=== PATIENT | male | born 1995 | race African-American/Black ===

== ENCOUNTER 2016-08-25 03:33 | Emergency (ER) | payer SELFPAY ==
[~2016-08-25] VITALS: Ht 175.3 cm; Wt 72.6 kg
[2016-08-25 03:59] LABS: BASO % 1 % (0-3); EOS % 0 % (0-3); HEMATOCRIT 49.5 % (39.0-53.0); HEMOGLOBIN 16.5 g/dL (13.0-17.5); LYMPH # 1.1 x10^3/uL (1.0-4.8); LYMPH % 15 % (24-48); MEAN CORPUSCULAR HEMOGLOBIN 30 pg (25-35); MEAN CORPUSCULAR HGB CONC 33 g/dL (31-37); MEAN CORPUSCULAR VOLUME 89 fL (79-100); MONO % 6 % (0-9); NEUT % 78 % (31-73); PLATELET COUNT 183 x10^3/uL (140-400); RED BLOOD COUNT 5.55 x10^6/uL (4.30-5.70); RED CELL DISTRIBUTION WIDTH 13.9 % (11.5-14.5)
[2016-08-25 04:04] LABS: CALCIUM 10.1 mg/dL (8.5-10.1); CREATININE 1.5 mg/dL (0.7-1.3); GFR 70.8; POTASSIUM 3.8 mmol/L (3.5-5.1)
[2016-08-25 04:10] LABS: ALBUMIN 4.9 g/dL (3.4-5.0); DIRECT BILIRUBIN 0.2 mg/dL (0.0-0.2); ETHANOL < 10 mg/dL (0-10); TOTAL BILIRUBIN 1.1 mg/dL (0.2-1.0); TOTAL PROTEIN 8.7 g/dL (6.4-8.2)
--- NOTE | 2016-08-25 04:30 | PHYS DOC ---
Past Medical History Past Medical History: No Pertinent History Past Surgical History: No Surgical History Alcohol Use: None Drug Use: Other Adult General Chief Complaint Chief Complaint: SUBSTANCE ABUSE HPI HPI 20-year-old male presenting to the emergency department reportedly confused brought in by EMS after knocking on multiple homes. Upon arrival here the patient is oriented to person place and time. He denies any pain. He denies taking any substances. Onset today. Location generalized. Duration intermittent. No alleviating factors present. Review of systems is negative for chest pain shortness of breath nausea vomiting fevers chills. He denies any pain. All other review of systems is negative unless otherwise noted in history of present illness. Review of Systems Review of Systems SEE ABOVE. Allergies Allergies Allergies Coded Allergies Type Severity Reaction Last Updated Verified No Known Drug Allergies 11/03/13 No Physical Exam Physical Exam Constitutional: Well developed, well nourished, no acute distress, non-toxic appearance. HENT: Normocephalic, atraumatic, bilateral external ears normal, oropharynx moist, no oral exudates, nose normal. [] Eyes: PERRLA, EOMI, conjunctiva normal, no discharge. [] Neck: Normal range of motion, no tenderness, supple, no stridor. Cardiovascular:Heart rate regular rhythm, no murmur [] Lungs & Thorax: Bilateral breath sounds clear to auscultation Abdomen: Bowel sounds normal, soft, no tenderness, no masses, no pulsatile masses. [] Skin: Warm, dry, no erythema, no rash. Back: No tenderness, no CVA tenderness. [] Extremities: No tenderness, no cyanosis, no clubbing, ROM intact, no edema. Neurologic: Mental status: Awake oriented and alert x3 Cranial nerves: Extraocular movements intact, eyebrows doroteo bilaterally smile symmetric, uvula elevation, shoulder shrug intact, tongue protrusion normal Sensation: equal and normal in all extremities Strength: 5/5 in upper and lower extremities bilaterally Psychologic: Affect normal, judgement normal, mood normal. [] Current Patient Data Vital Signs Vital Signs Date Time Temp Pulse Resp B/P Pulse Ox O2 Delivery O2 Flow Rate FiO2 08/25/16 04:18 62 18 164/100 96 Room Air 08/25/16 03:45 97.5 97.5 Lab Values Laboratory Tests Test 08/25/16 03:46 08/25/16 04:50 White Blood Count 7.0x10^3/uL (4.0-11.0) Red Blood Count 5.55x10^6/uL (4.30-5.70) Hemoglobin 16.5g/dL (13.0-17.5) Hematocrit 49.5% (39.0-53.0) Mean Corpuscular Volume 89fL (79-100) Mean Corpuscular Hemoglobin 30pg (25-35) Mean Corpuscular Hemoglobin Concent 33g/dL (31-37) Red Cell Distribution Width 13.9% (11.5-14.5) Platelet Count 183x10^3/uL (140-400) Neutrophils (%) (Auto) 78% (31-73) H Lymphocytes (%) (Auto) 15% (24-48) L Monocytes (%) (Auto) 6% (0-9) Eosinophils (%) (Auto) 0% (0-3) Basophils (%) (Auto) 1% (0-3) Neutrophils # (Auto) 5.4x10^3uL (1.8-7.7) Lymphocytes # (Auto) 1.1x10^3/uL (1.0-4.8) Monocytes # (Auto) 0.4x10^3/uL (0.0-1.1) Eosinophils # (Auto) 0.0x10^3/uL (0.0-0.7) Basophils # (Auto) 0.0x10^3/uL (0.0-0.2) Sodium Level 143mmol/L (136-145) Potassium Level 3.8mmol/L (3.5-5.1) Chloride Level 101mmol/L (98-107) Carbon Dioxide Level 27mmol/L (21-32) Anion Gap 15 (6-14) H Blood Urea Nitrogen 15mg/dL (8-26) Creatinine 1.5mg/dL (0.7-1.3) H Estimated GFR (Cockcroft-Gault) 70.8 Glucose Level 116mg/dL (70-99) H Serum Osmolality 294mOsm/Kg (279-304) Calcium Level 10.1mg/dL (8.5-10.1) Total Bilirubin 1.1mg/dL (0.2-1.0) H Direct Bilirubin 0.2mg/dL (0.0-0.2) Aspartate Amino Transferase (AST) 70U/L (15-37) H Alanine Aminotransferase (ALT) 27U/L (16-63) Alkaline Phosphatase 70U/L (46-116) Total Protein 8.7g/dL (6.4-8.2) H Albumin 4.9g/dL (3.4-5.0) Lipase 70U/L (73-393) L Salicylates Level 4.0mg/dL (2.8-20.0) Salicylate Last Dose Date Unk Salicylate Last Dose Time Unk Acetaminophen Level < 2mcg/ml (10-30) L Acetaminophen Last Dose Date Unk Acetaminophen Last Dose Time Unk Ethyl Alcohol Level < 10mg/dL (0-10) Urine Collection Type Unknown Urine Color Yellow Urine Clarity Clear Urine pH 5.5 Urine Specific [place] <=1.005 Urine Protein Negativemg/dL (NEG-TRACE) Urine Glucose (UA) Negativemg/dL (NEG) Urine Ketones (Stick) Tracemg/dL (NEG) Urine Blood Small (NEG) Urine Nitrite Negative (NEG) Urine Bilirubin Negative (NEG) Urine Urobilinogen Dipstick 0.2mg/dL (0.2 mg/dL) Urine Leukocyte Esterase Trace (NEG) Urine RBC Occ/HPF (0-2) Urine WBC 0/HPF (0-4) Urine Squamous Epithelial Cells None/LPF Urine Bacteria 0/HPF (0-FEW) Urine Hyaline Casts Occasional/HPF Urine Opiates Screen Neg (NEG) Urine Methadone Screen Neg (NEG) Urine Barbiturates Neg (NEG) Urine Phencyclidine Screen Pos (NEG) Urine Amphetamine/Methamphetamine Neg (NEG) Urine Benzodiazepines Screen Neg (NEG) Urine Cocaine Screen Neg (NEG) Urine Cannabinoids Screen Pos (NEG) Urine Ethyl Alcohol Neg (NEG) Laboratory Tests 08/25/16 03:46 Laboratory Tests 08/25/16 03:46 EKG EKG [] Radiology/Procedures Radiology/Procedures [] Course & Med Decision Making Course & Med Decision Making Pertinent Labs and Imaging studies reviewed. (See chart for details) [] 20-year-old male presenting to the emergency department today reportedly confused. Upon arrival here the patient is not confused. He denies drinking alcohol. Blood work obtained which was unremarkable including a negative alcohol. It is possible that he is using some other substance however the patient is able to speak in clear sentences and is able to walk in our emergency department without assistance. Pertinent physical exam shows atraumatic head. No evidence of laceration abrasion or ecchymosis to the head or neck. He has a friend here who is willing to drive him home and care for him. The patient was subsequently discharged home to follow up with PCP over the next 2-3 days. Dragon Disclaimer Dragon Disclaimer This electronic medical record was generated, in whole or in part, using a voice recognition dictation system. Departure Departure Impression: Primary Impression: Substance abuse Disposition: HOME, SELF-CARE Condition: STABLE Referrals: NO PCP (PCP) EILEEN FOREMAN MD Patient Instructions: Substance Abuse-Brief Additional Instructions: Thank you for allowing us to participate in your care today. Followup with your primary care physician in 3 days if your symptoms do not improve. If you do not have a primary care provider you can ask for a list of our primary care providers. Return to the emergency department you have any new or concerning findings. This should be evaluated by the primary care physician and any necessary consulting services for continued management within a few days after discharge. Return to emergency room if you have any new or concerning symptoms including but not limited to fever, chills, nausea, vomiting, intractable pain, any new rashes, chest pain, shortness of air, uncontrolled bleeding, difficulty breathing, and/or vision loss. LEIDA MOSLEY MD Aug 25, 2016 04:30
[2016-08-25 04:59] LABS: BILIRUBIN,URINE NEGATIVE (NEG); GLUCOSE,URINE NEGATIVE (NEG); NITRITE,URINE NEGATIVE (NEG); PH,URINE 5.5; PROTEIN,URINE NEGATIVE (NEG-TRACE); UROBILINOGEN,URINE 0.2 mg/dL (0.2 mg/dL)
[2016-08-25 05:05] LABS: BARBITURATES NEG (NEG); BENZODIAZEPINES NEG (NEG); CANNABINOIDS POS (NEG); COCAINE NEG (NEG); METHADONE NEG (NEG); OPIATES NEG (NEG); PHENCYCLIDINE POS (NEG)
[2016-08-25 05:06] LABS: ETHANOL, URINE NEG (NEG)
[2016-08-25 05:15] LABS: BACTERIA,URINE 0 /HPF (0-FEW); RBC,URINE OCC /HPF (0-2); WBC,URINE 0 /HPF (0-4)
[2016-08-25 06:00] VITALS: BP 154/89
== END 2016-08-25 06:00 | disposition home or self-care (01) ==
LOC: ER 03:33
DX: F19.10 Other psychoactive substance abuse, uncomplicated (principal)
CPT/HCPCS: 36415; 80048; 80076; 80305; 80320; 81001; 83690; 83930; 85027; 87086; 99284; G6038; G0480; G0481; 80196

== ENCOUNTER 2020-03-18 13:10 | Emergency (ER) | payer SELFPAY ==
[~2020-03-18] VITALS: Ht 182.9 cm; Wt 81.8 kg
[2020-03-18 14:30] VITALS: BP 134/80
[2020-03-18] MEDS ORDERED: IBUPROFEN 200 MG TABLET. PO ONE (15:30)
--- NOTE | 2020-03-18 16:01 | PHYS DOC ---
Past Medical History Past Medical History: No Pertinent History Past Surgical History: No Surgical History Smoking Status: Never Smoker Alcohol Use: None Drug Use: Other General Adult EDM: Chief Complaint: THUMB HPI: HPI: Patient is a 24 year old male who presents with states a box with metal and it fell on his left thumb and now he has pain and swelling to the left thumb metacarpophalangeal. Swelling is 2+. There is tenderness to this area. Patient states he cannot bend at that joint due to pain. There is no laxity to any of the joints. No bruising or deformity. Patient states he has not taken anything to help with pain. He rates his pain 10 out of 10. He states it is aching and sharp. Worse with movement. Patient denies any other past medical history. Denies numbness or tingling, coolness to the extremity, skin color change, focal weakness. Review of Systems: Review of Systems: Constitutional: Denies fever or chills. [] Eyes: Denies change in visual acuity. [] HENT: Denies nasal congestion or sore throat. [] Respiratory: Denies cough or shortness of breath. [] Cardiovascular: Denies chest pain. Left thumb joint 2+ edema. [] GI: Denies abdominal pain, nausea, vomiting, bloody stools or diarrhea. [] : Denies dysuria. [] Musculoskeletal: Denies back pain. + Left thumb joint pain. [] Integument: Denies rash. [] Neurologic: Denies headache, focal weakness or sensory changes. [] Endocrine: Denies polyuria or polydipsia. [] Lymphatic: Denies swollen glands. [] Psychiatric: Denies depression or anxiety. [] Heart Score: Risk Factors: Risk Factors: DM, Current or recent (<one month) smoker, HTN, HLP, family history of CAD, obesity. Risk Scores: Score 0 - 3: 2.5% MACE over next 6 weeks - Discharge Home Score 4 - 6: 20.3% MACE over next 6 weeks - Admit for Clinical Observation Score 7 - 10: 72.7% MACE over next 6 weeks - Early Invasive Strategies Current Medications: Current Medications Medications (Trade) Dose Ordered Sig/Dara Start Time Stop Time Status Last Admin Dose Admin Ibuprofen (Motrin) 600 mg 1X ONCE 03/18/20 15:30 03/18/20 15:31 DC Allergies: Allergies: Allergies Coded Allergies Type Severity Reaction Last Updated Verified No Known Drug Allergies 11/03/13 No Physical Exam: PE: Constitutional: Well developed, well nourished, no acute distress, non-toxic appearance. [] HENT: Normocephalic, atraumatic, bilateral external ears normal, oropharynx moist, no oral exudates, nose normal. [] Eyes: PERRLA, EOMI, conjunctiva normal, no discharge. [] Neck: Normal range of motion, no tenderness, supple, no stridor. [] Cardiovascular:Heart rate regular rhythm, no murmur [] Lungs & Thorax: Bilateral breath sounds clear to auscultation [] Abdomen: Bowel sounds normal, soft, no tenderness, no masses, no pulsatile masses. [] Skin: Warm, dry, no erythema, no rash. [] Back: No tenderness, no CVA tenderness. [] Extremities: Left thumb joint tenderness, no cyanosis, no clubbing, left thumb joint ROM not intact due to pain and swelling, left thumb joint 2+ edema. [] Neurologic: Alert and oriented X 3, normal motor function, normal sensory function, no focal deficits noted. [] Psychologic: Affect normal, judgement normal, mood normal. [] Current Patient Data: Vital Signs: Vital Signs Date Time Temp Pulse Resp B/P (MAP) Pulse Ox O2 Delivery O2 Flow Rate FiO2 03/18/20 14:30 98.1 58 20 134/80 (98) 99 Room Air 98.1 EKG: EKG: [] Radiology/Procedures: Radiology/Procedures: [] Impression: [facility] [address] [place], [place] [id number] IMAGING REPORT Signed PATIENT: CHEYENNE RUBALCAVA ACCOUNT: [id number] : 1995 LOCATION: ER AGE: 24 SEX: M EXAM STATUS: REG ER ORD. PHYSICIAN: MARITZA ENRIQUEZ APRN REASON: PAIN AT THUMB PROCEDURE: HAND LEFT 3V EXAM: HAND LEFT 3V 03/18/2020 3:18 PM CLINICAL INDICATION:Pain at thumb COMPARISON:None TECHNIQUE:3 views of the left hand FINDINGS:No acute fracture. Alignment is normal. Joint spaces are maintained. No focal soft tissue abnormality. IMPRESSION:No acute osseous abnormality. Electronically signed by: Sade Ocasio MD (03/18/2020 3:59 PM) [id number] DICTATED and SIGNED BY: SADE OCASIO MD DATE: 03/18/20 1559 Course & Med Decision Making: Course & Med Decision Making Pertinent Labs and Imaging studies reviewed. (See chart for details) See HPI. Patient was given ibuprofen the emergency room. Radial pulses strong and present. Skin [place] warm and dry. Cap refill less than 2 seconds. X-ray shows no acute findings. Patient will follow up with orthopedics. Upon going into speak with the patient he had eloped. Patient did not get any prescriptions or his discharge paperwork for follow-up care. He did not get his x-ray results as he left before the x-ray was read. Patient was not placed in a splint because he eloped. [] Dragon Disclaimer: Dragon Disclaimer: This electronic medical record was generated, in whole or in part, using a voice recognition dictation system. Departure Departure Impression: Primary Impression: Pain of left thumb Disposition: 07 AMA/ELOPED/LWBS Condition: STABLE Referrals: NO PCP (PCP) HAYLEE BRODERICK II, MD Additional Instructions: MARITZA ENRIQUEZ APRN Mar 18, 2020 16:01
[2020-03-18] MEDS ORDERED: IBUP-1007 PO (16:08)
== END 2020-03-18 16:10 | disposition home or self-care (01) ==
LOC: ER 13:10
DX: M79.645 Pain in left finger(s) (principal); R22.32 Localized swelling, mass and lump, left upper limb
CPT/HCPCS: 73130; 99283

== ENCOUNTER 2021-07-31 09:39 | Observation (INO) | payer SELFPAY ==
[~2021-07-31] VITALS: Ht 180.3 cm; Wt 72.7 kg
[~2021-07-31 09:39] MED LIST: IBUP-1007 PO
[2021-07-31] MEDS ORDERED: IV NORMAL SALINE 1000ML BAG 1,000 ML IV ONE (10:00)
--- NOTE | 2021-07-31 10:14 | PHYS DOC ---
Past Medical History Past Medical History: No Pertinent History Past Surgical History: No Surgical History Smoking Status: Never Smoker Alcohol Use: None Drug Use: Other Adult General Chief Complaint Chief Complaint: ALTERED MENTAL STATUS HPI HPI The patient is a 25-year-old male without known medical history. Prior documentation references an admission in 2016 for PCP intoxication with altered mental status. Mr. Tarango presents for evaluation of altered mental status. Concerned terrenceby called EMS because he was sitting in the parking lot at [facility] not responding appropriately. On EMS arrival, patient was alert and responsive but confused, oriented to name only. Blood glucose and vital signs were appropriate during transport. On arrival to the emergency department, patient is alert to self and can also tell me the year but gets the month wrong. He states he does not remember what happened last night but then reverses himself and states he remembers being at work a [employer] overnight (he is dressed in work clothing, supporting this assertion). He denies any use of drugs or alcohol. He moves all extremities equally and follows commands appropriately but does not provide much history aside from noting that he does not hurt anywhere. He is in no acute distress. Review of Systems Review of Systems Review of systems not obtainable secondary to altered mental status. Current Medications Current Medications Current Medications Medications (Trade) Dose Ordered Sig/Dara Start Time Stop Time Status Last Admin Dose Admin Acetaminophen (Tylenol) 650 mg PRN Q4HRS PRN 07/31/21 12:00 Dextrose (Dextrose 50%-Water Syringe) 12.5 gm PRN Q15MIN PRN 07/31/21 12:00 Diphenhydramine HCl (Benadryl) 25 mg PRN QHS PRN 07/31/21 12:00 Docusate Sodium (Colace) 100 mg PRN DAILY PRN 07/31/21 12:00 Lorazepam (Ativan Inj) 0.25 mg PRN Q4HRS PRN 07/31/21 12:00 Lorazepam (Ativan) 0.5 mg PRN Q6HRS PRN 07/31/21 12:00 Ondansetron HCl (Zofran) 4 mg PRN Q6HRS PRN 07/31/21 12:00 Pantoprazole Sodium (Protonix) 40 mg DAILYAC 07/31/21 13:00 07/31/21 13:00 40 MG Prochlorperazine Edisylate (Compazine) 10 mg PRN Q6HRS PRN 07/31/21 12:00 Sennosides (Senna) 17.2 mg PRN BID PRN 07/31/21 12:00 Sodium Chloride 1,000 ml @ 100 mls/hr Q10H 07/31/21 13:00 07/31/21 23:06 100 MLS/HR Zolpidem Tartrate (Ambien) 2.5 mg PRN QHS PRN 07/31/21 12:00 Allergies Allergies Allergies Coded Allergies Type Severity Reaction Last Updated Verified No Known Drug Allergies 11/03/13 No Physical Exam Physical Exam 25-year-old male appearing nontoxic and in no acute distress. Head is normocephalic and atraumatic. Neck is supple and nontender. No neck stiffness/rigidity/meningismus seen and patient ranges neck fully in all dimensions without discomfort or distress. Kernig's and Brudzinski's are negative. Oropharynx is moist. Lungs are clear to auscultation at all stations. There is a normal S1 and S2 without rubs or gallops and capillary r efill is appropriate, less than 2 seconds globally. Abdomen is soft, nontender nondistended. Skin is warm and dry without cyanosis, clubbing or edema. Psychiatrically, the patient demonstrates appropriate mood and affect and is alert. Neurologically, patient moves all extremities equally, is alert and oriented to self only and no lateralizing deficits are seen. Current Patient Data Vital Signs Vital Signs Date Time Temp Pulse Resp B/P (MAP) Pulse Ox O2 Delivery O2 Flow Rate FiO2 07/31/21 12:39 80 16 130/60 (83) 99 07/31/21 09:50 98.1 Room Air 98.1 Lab Values Laboratory Tests Test 07/31/21 10:00 07/31/21 10:10 Urine Collection Type Unknown Urine Color Yellow Urine Clarity Clear Urine pH 5.5 (<5.0-8.0) Urine Specific [place] 1.025 (1.000-1.030) Urine Protein Negative mg/dL (NEG-TRACE) Urine Glucose (UA) Negative mg/dL (NEG) Urine Ketones (Stick) Negative mg/dL (NEG) Urine Blood Trace (NEG) Urine Nitrite Negative (NEG) Urine Bilirubin Small (NEG) Urine Urobilinogen Dipstick 1.0 mg/dL (0.2 mg/dL) Urine Leukocyte Esterase Negative (NEG) Urine RBC 0 /HPF (0-2) Urine WBC 1-4 /HPF (0-4) Urine Squamous Epithelial Cells Few /LPF Urine Bacteria 0 /HPF (0-FEW) Urine Mucus Slight /LPF Urine Opiates Screen Neg (NEG) Urine Methadone Screen Neg (NEG) Urine Barbiturates Neg (NEG) Urine Phencyclidine Screen Pos (NEG) Urine Amphetamine/Methamphetamine Neg (NEG) Urine Benzodiazepines Screen Neg (NEG) Urine Cocaine Screen Neg (NEG) Urine Cannabinoids Screen Pos (NEG) Urine Ethyl Alcohol Neg (NEG) White Blood Count 6.4 x10^3/uL (4.0-11.0) Red Blood Count 4.75 x10^6/uL (4.30-5.70) Hemoglobin 14.0 g/dL (13.0-17.5) Hematocrit 42.4 % (39.0-53.0) Mean Corpuscular Volume 89 fL (79-100) Mean Corpuscular Hemoglobin 30 pg (25-35) Mean Corpuscular Hemoglobin Concent 33 g/dL (31-37) Red Cell Distribution Width 13.4 % (11.5-14.5) Platelet Count 171 x10^3/uL (140-400) Neutrophils (%) (Auto) 78 % (31-73) H Lymphocytes (%) (Auto) 14 % (24-48) L Monocytes (%) (Auto) 7 % (0-9) Eosinophils (%) (Auto) 0 % (0-3) Basophils (%) (Auto) 1 % (0-3) Neutrophils # (Auto) 5.0 x10^3/uL (1.8-7.7) Lymphocytes # (Auto) 0.9 x10^3/uL (1.0-4.8) L Monocytes # (Auto) 0.4 x10^3/uL (0.0-1.1) Eosinophils # (Auto) 0.0 x10^3/uL (0.0-0.7) Basophils # (Auto) 0.0 x10^3/uL (0.0-0.2) Sodium Level 148 mmol/L (136-145) H Potassium Level 4.2 mmol/L (3.5-5.1) Chloride Level 108 mmol/L (98-107) H Carbon Dioxide Level 28 mmol/L (21-32) Anion Gap 12 (6-14) Blood Urea Nitrogen 29 mg/dL (8-26) H Creatinine 1.8 mg/dL (0.7-1.3) H Estimated GFR (Cockcroft-Gault) 55.0 BUN/Creatinine Ratio 16 (6-20) Glucose Level 114 mg/dL (70-99) H Calcium Level 9.0 mg/dL (8.5-10.1) Total Bilirubin 1.1 mg/dL (0.2-1.0) H Aspartate Amino Transferase (AST) 101 U/L (15-37) H Alanine Aminotransferase (ALT) 44 U/L (16-63) Alkaline Phosphatase 46 U/L (46-116) Troponin I High Sensitivity 19 ng/L (4-75) Total Protein 6.6 g/dL (6.4-8.2) Albumin 3.9 g/dL (3.4-5.0) Albumin/Globulin Ratio 1.4 (1.0-1.7) Salicylates Level 4.6 mg/dL (2.8-20.0) Salicylate Last Dose Date Unknown Salicylate Last Dose Time Unknown Acetaminophen Level < 2 mcg/ml (10-30) L Acetaminophen Last Dose Date Unknown Acetaminophen Last Dose Time Unknown Ethyl Alcohol Level < 10 mg/dL (0-10) Laboratory Tests 07/31/21 10:10 Laboratory Tests 07/31/21 10:10 EKG EKG Sinus rhythm, rate 104, no acute ST elevation or depression, NE 124, QRS 102, QTc 499, EP interpretation. Nonischemic tracing, intervals appropriate. Radiology/Procedures Radiology/Procedures CT brain without contrast. HISTORY: Altered mental status CT scan of the brain was done without contrast. Sinuses are clear. A skull fracture is not evident. There is no mass effect or shift of the midline. Ventricles are normal in size. An acute CVA is not identified. There is no intracranial hemorrhage or subdural hematoma. IMPRESSION: 1. No intracranial hemorrhage or acute finding noted. PQRS Compliance Statement: One or more of the following individualized dose reduction techniques were utilized for this examination: 1. Automated exposure control 2. Adjustment of the mA and/or kV according to patient size 3. Use of iterative reconstruction technique Electronically signed by: Melvin Gates MD (07/31/2021 11:17 AM) [id number] DICTATED and SIGNED BY: MELVIN GATES MD DATE: 07/31/21 [id number] XR CHEST 1V History: Reason: AMS / Spl. Instructions: / History: Comparison: December 02, 2015 Findings: No consolidation or pleural effusion. Normal heart size. No pneumothorax. Impression: 1. No acute cardiopulmonary process. Electronically signed by: Tigre Stafford DO (07/31/2021 10:33 AM) [id number] DICTATED and SIGNED BY: TIGRE STAFFORD DO DATE: 07/31/21 [id number] Course & Med Decision Making Course & Med Decision Making Plan for large work-up as noted, IV fluids and probable admission. Update: Work-up as above is remarkable for polysubstance positivity on UDS (phencyclidine and marijuana), acute renal insufficiency and hypernatremia. In context, substance abuse is the most likely etiology for patient's presenting symptoms. Patient is resting comfortably in no acute distress on serial reas sessments. He is still somewhat altered, though more conversational than on arrival. Will bring in for further care on an observation basis. Dr. Jones graciously accepts. Dragon Disclaimer Dragon Disclaimer This electronic medical record was generated, in whole or in part, using a voice recognition dictation system. Departure Departure Impression: Primary Impression: Toxic encephalopathy Additional Impressions: Acute renal insufficiency Hypernatremia Dehydration Referrals: NO PCP (PCP) Problem Qualifiers JAMIE FRANCIS MD Jul 31, 2021 10:13
[2021-07-31 10:36] LABS: CREATININE 1.8 mg/dL (0.7-1.3); POTASSIUM 4.2 mmol/L (3.5-5.1)
--- NOTE | 2021-07-31 10:36 | RAD ---
XR CHEST 1V History: Reason: AMS / Spl. Instructions: / History: Comparison: December 02, 2015 Findings: No consolidation or pleural effusion. Normal heart size. No pneumothorax. Impression: 1. No acute cardiopulmonary process. Electronically signed by: Tigre Stafford DO (07/31/2021 10:33 AM) [id number]
[2021-07-31 10:41] LABS: ALBUMIN 3.9 g/dL (3.4-5.0); ALBUMIN/GLOBULIN RATIO 1.4 (1.0-1.7); TOTAL BILIRUBIN 1.1 mg/dL (0.2-1.0); TOTAL PROTEIN 6.6 g/dL (6.4-8.2)
[2021-07-31 10:45] LABS: ACETAMIN < 2 mcg/ml (10-30); ETHANOL < 10 mg/dL (0-10); SALIC 4.6 mg/dL (2.8-20.0)
[2021-07-31 10:47] LABS: BASO % 1 % (0-3); EOS % 0 % (0-3); HEMATOCRIT 42.4 % (39.0-53.0); LYMPH # 0.9 x10^3/uL (1.0-4.8); LYMPH % 14 % (24-48); MEAN CORPUSCULAR HEMOGLOBIN 30 pg (25-35); MEAN CORPUSCULAR HGB CONC 33 g/dL (31-37); MEAN CORPUSCULAR VOLUME 89 fL (79-100); MONO # 0.4 x10^3/uL (0.0-1.1); MONO % 7 % (0-9); NEUT % 78 % (31-73); PLATELET COUNT 171 x10^3/uL (140-400); RED BLOOD COUNT 4.75 x10^6/uL (4.30-5.70); RED CELL DISTRIBUTION WIDTH 13.4 % (11.5-14.5); WHITE BLOOD COUNT 6.4 x10^3/uL (4.0-11.0)
[2021-07-31 11:09] LABS: BARBITURATES NEG (NEG); BENZODIAZEPINES NEG (NEG); CANNABINOIDS POS (NEG); COCAINE NEG (NEG); METHADONE NEG (NEG); OPIATES NEG (NEG); PHENCYCLIDINE POS (NEG)
[2021-07-31 11:10] LABS: AMPHETAMINE/METHAMPHETAMINE NEG (NEG)
[2021-07-31 11:13] LABS: BILIRUBIN,URINE SMALL (NEG); CLARITY,URINE CLEAR; COLOR,URINE YELLOW; NITRITE,URINE NEGATIVE (NEG); PH,URINE 5.5 (<5.0-8.0); PROTEIN,URINE NEGATIVE (NEG-TRACE)
[2021-07-31 11:14] LABS: RBC,URINE 0 /HPF (0-2)
[2021-07-31 11:15] LABS: BACTERIA,URINE 0 /HPF (0-FEW)
--- NOTE | 2021-07-31 11:20 | RAD ---
CT brain without contrast. HISTORY: Altered mental status CT scan of the brain was done without contrast. Sinuses are clear. A skull fracture is not evident. T here is no mass effect or shift of the midline. Ventricles are normal in size. An acute CVA is not id entified. There is no intracranial hemorrhage or subdural hematoma. IMPRESSION: 1. No intracranial hemorrhage or acute finding noted. PQRS Compliance Statement: One or more of the following individualized dose reduction techniques were utilized for this examinat ion: 1. Automated exposure control 2. Adjustment of the mA and/or kV according to patient size 3. Use of iterative reconstruction technique Electronically signed by: Melvin Gates MD (07/31/2021 11:17 AM) [facility]
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
[2021-07-31] MEDS ORDERED: DEXTROSE 50% 25 GM / 50ML DISP.SYRIN. IV PRN (12:00)
[2021-07-31] MEDS ORDERED: DOCUSATE SODIUM 100 MG CAPSULE. PO PRN (12:00)
[2021-07-31] MEDS ORDERED: PROCHLORPERAZINE 10 MG/2 ML VIAL. IV PRN (12:00)
[2021-07-31] MEDS ORDERED: diphenhydrAMINE 50 MG/ML VIAL IVP PRN (12:00)
[2021-07-31] MEDS ORDERED: ZOLPIDEM 5 MG TABLET. PO PRN (12:00)
[2021-07-31] MEDS ORDERED: SENNOSIDES 8.6 MG TABLET PO PRN (12:00)
[2021-07-31] MEDS ORDERED: ACETAMINOPHEN 325 MG TABLET. PO PRN (12:00)
[2021-07-31] MEDS ORDERED: LORazepam 0.5 MG TABLET PO PRN (12:00)
[2021-07-31] MEDS ORDERED: ONDANSETRON PF 4 MG/2 ML VIAL. IVP PRN (12:00)
[2021-07-31] MEDS ORDERED: diphenhydrAMINE HCL 25 MG CAPSULE PO PRN ×2 (12:00)
--- NOTE | 2021-07-31 12:06 | EKG ---
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
[2021-07-31] MEDS: IV NORMAL SALINE 1000ML BAG 1,000 ML IV SCH ×2 (13:00→23:06)
[2021-07-31] MEDS: PANTOPRAZOLE 40 MG TABLET.DR. PO SCH (13:00)
[2021-07-31 15:15] VITALS: BP 123/70
[2021-07-31 19:00] VITALS: BP 118/62
[2021-07-31 23:00] VITALS: BP 111/70
[2021-08-01 03:00] VITALS: BP 126/79
[2021-08-01 07:00] VITALS: BP 122/68
[2021-08-01] MEDS: PANTOPRAZOLE 40 MG TABLET.DR. PO SCH (07:56)
[2021-08-01 08:45] LABS: CALCIUM 8.1 mg/dL (8.5-10.1); CREATININE 1.2 mg/dL (0.7-1.3); GFR 87.9; PHOSPHORUS 3.4 mg/dL (2.6-4.7); POTASSIUM 4.5 mmol/L (3.5-5.1)
[2021-08-01 08:52] LABS: BASO % 0 % (0-3); EOS # 0.1 x10^3/uL (0.0-0.7); EOS % 2 % (0-3); HEMATOCRIT 38.7 % (39.0-53.0); HEMOGLOBIN 12.8 g/dL (13.0-17.5); LYMPH # 0.9 x10^3/uL (1.0-4.8); LYMPH % 26 % (24-48); MEAN CORPUSCULAR HEMOGLOBIN 30 pg (25-35); MEAN CORPUSCULAR HGB CONC 33 g/dL (31-37); MEAN CORPUSCULAR VOLUME 90 fL (79-100); MONO # 0.3 x10^3/uL (0.0-1.1); MONO % 9 % (0-9); NEUT # 2.2 x10^3/uL (1.8-7.7); NEUT % 63 % (31-73); PLATELET COUNT 141 x10^3/uL (140-400); RED BLOOD COUNT 4.29 x10^6/uL (4.30-5.70); RED CELL DISTRIBUTION WIDTH 13.9 % (11.5-14.5); WHITE BLOOD COUNT 3.5 x10^3/uL (4.0-11.0)
[2021-08-01] MEDS: IV NORMAL SALINE 1000ML BAG 1,000 ML IV SCH ×2 (09:11→18:43)
[2021-08-01 10:48] VITALS: BP 126/72
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
[2021-08-01 15:00] VITALS: BP 132/90
[2021-08-01 19:00] VITALS: BP 139/84
[2021-08-01 23:00] VITALS: BP 125/81
[2021-08-02] MEDS ORDERED: PHENYLEPH/MINERAL OIL/PETROLAT RECTAL OINTMENT TUBE. RC PRN (03:00)
[2021-08-02] MEDS ORDERED: KETOROLAC 30 MG/ML VIAL. IVP PRN (03:00)
[2021-08-02] MEDS: IV NORMAL SALINE 1000ML BAG 1,000 ML IV SCH ×2 (04:24→07:06)
[2021-08-02 07:00] VITALS: BP 137/97
[2021-08-02 07:24] LABS: BASO % 1 % (0-3); EOS # 0.1 x10^3/uL (0.0-0.7); EOS % 3 % (0-3); HEMATOCRIT 40.2 % (39.0-53.0); HEMOGLOBIN 13.2 g/dL (13.0-17.5); LYMPH # 1.1 x10^3/uL (1.0-4.8); LYMPH % 28 % (24-48); MEAN CORPUSCULAR HEMOGLOBIN 30 pg (25-35); MEAN CORPUSCULAR HGB CONC 33 g/dL (31-37); MEAN CORPUSCULAR VOLUME 91 fL (79-100); MONO # 0.3 x10^3/uL (0.0-1.1); MONO % 7 % (0-9); NEUT # 2.4 x10^3/uL (1.8-7.7); NEUT % 61 % (31-73); PLATELET COUNT 137 x10^3/uL (140-400); RED CELL DISTRIBUTION WIDTH 13.9 % (11.5-14.5); WHITE BLOOD COUNT 3.9 x10^3/uL (4.0-11.0)
[2021-08-02] MEDS: PANTOPRAZOLE 40 MG TABLET.DR. PO SCH (07:30)
[2021-08-02 07:32] LABS: CALCIUM 8.4 mg/dL (8.5-10.1); CREATININE 1.2 mg/dL (0.7-1.3); GFR 87.9; POTASSIUM 4.3 mmol/L (3.5-5.1)
[2021-08-02] MEDS ORDERED: IV 1/2 NORMAL SALINE 1,000 ML IV ONE (08:30)
--- NOTE | 2021-08-02 10:22 | DISCH ---
DISCHARGE INSTRUCTIONS Condition on Discharge Condition on Discharge: Stable Activity After Discharge Activity Instructions for Disc: Resume previous activity Follow-Up Follow up with: PCP within 2 weeks of discharge Follow Up With: General surgery for your hemorrhoids ZAKIA ROSALES MD Aug 02, 2021 10:22
[2021-08-02 11:00] VITALS: BP 122/86
--- NOTE | 2021-08-02 13:59 | NUR ---
Pt provided with discharge instructions and ambulated to main entrance with [employer] where he was picked up by a [employer] trip cab
[2021-08-03] MEDS ORDERED: IBUP-1007 PO (17:36)
[2021-08-03] MEDS ORDERED: BACI28.34 TP (17:36)
[2021-08-03] MEDS ORDERED: HYDR-2761 PO (17:36)
[2021-08-04] MEDS ORDERED: METR-34 PO (09:13)
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
== END 2021-08-02 13:35 | disposition home or self-care (01) ==
LOC: ER 09:39 → 4 NORTH 13:23
PROVIDERS: ADMIT Internal Medicine; ATTEND Internal Medicine
DX: G92.9 Unspecified toxic encephalopathy (principal); T40.991A Poisoning by other psychodysleptics [hallucinogens], accidental (unintentional), initial encounter; E87.8 Other disorders of electrolyte and fluid balance, not elsewhere classified; N17.0 Acute kidney failure with tubular necrosis; E87.0 Hyperosmolality and hypernatremia; F16.10 Hallucinogen abuse, uncomplicated; E86.0 Dehydration; F12.10 Cannabis abuse, uncomplicated; F19.10 Other psychoactive substance abuse, uncomplicated; Z79.899 Other long term (current) drug therapy; Z98.890 Other specified postprocedural states
CPT/HCPCS: 36415; 70450; 71045; 80048; 80053; 80307; 80329; 81001; 83735; 84100; 84484; 85025; 93005; 96361; 96374; 99285; G0378; G0480; J1885; J3490; J7030; G0379

== ENCOUNTER 2021-08-03 13:21 | Emergency (ER) | payer OTHER ==
[~2021-08-03] VITALS: Ht 182.9 cm; Wt 82.0 kg
[2021-08-03] MEDS ORDERED: LIDOCAINE 1% Multi-Dose 20 ML VIAL. INJ ONE (13:45)
[2021-08-03] MEDS ORDERED: DIPHTH,PERTUSS(ACELL),TET TOX 0.5 ML DISP.SYRIN. VAX IM ONE (13:45)
[2021-08-03] MEDS ORDERED: BACITRACIN TOPICAL OINT PACKET. TP ONE (13:45)
[2021-08-03] MEDS ORDERED: ACETAMINOPHEN 325 MG TABLET. PO ONE (14:30)
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
[2021-08-03 15:24] LABS: BILIRUBIN,URINE NEGATIVE (NEG); CLARITY,URINE CLEAR; COLOR,URINE YELLOW; NITRITE,URINE NEGATIVE (NEG); PROTEIN,URINE 30 mg/dL (NEG-TRACE)
[2021-08-03 15:25] LABS: HYALINE CASTS, URINE FEW /HPF
[2021-08-03 15:27] LABS: BACTERIA,URINE 0 /HPF (0-FEW); TRICHOMONAS,URINE PRESENT; WBC,URINE OCC /HPF (0-4)
[2021-08-03] MEDS ORDERED: IOHEXOL 300 MG/ML 100ML VIAL. IV ONE (16:00)
[2021-08-03] MEDS ORDERED: CONTRAST GIVEN. MC PRN (16:00)
[2021-08-03 16:20] LABS: BASO % 0 % (0-3); EOS # 0.1 x10^3/uL (0.0-0.7); EOS % 1 % (0-3); HEMATOCRIT 38.8 % (39.0-53.0); HEMOGLOBIN 12.9 g/dL (13.0-17.5); LYMPH # 0.9 x10^3/uL (1.0-4.8); LYMPH % 11 % (24-48); MEAN CORPUSCULAR HEMOGLOBIN 30 pg (25-35); MEAN CORPUSCULAR HGB CONC 33 g/dL (31-37); MEAN CORPUSCULAR VOLUME 90 fL (79-100); MONO # 0.4 x10^3/uL (0.0-1.1); MONO % 5 % (0-9); NEUT # 7.1 x10^3/uL (1.8-7.7); NEUT % 83 % (31-73); PLATELET COUNT 153 x10^3/uL (140-400); RED BLOOD COUNT 4.34 x10^6/uL (4.30-5.70); RED CELL DISTRIBUTION WIDTH 13.7 % (11.5-14.5); WHITE BLOOD COUNT 8.5 x10^3/uL (4.0-11.0)
[2021-08-03 16:34] LABS: CALCIUM 8.3 mg/dL (8.5-10.1); CREATININE 1.4 mg/dL (0.7-1.3); GFR 73.6; POTASSIUM 4.3 mmol/L (3.5-5.1)
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
[2021-08-03 16:40] LABS: ALBUMIN 3.2 g/dL (3.4-5.0); ALBUMIN/GLOBULIN RATIO 1.1 (1.0-1.7); TOTAL BILIRUBIN 0.5 mg/dL (0.2-1.0)
[2021-08-03] MEDS ORDERED: IBUP-1007 PO (17:36)
[2021-08-03] MEDS ORDERED: BACI28.34 TP (17:36)
[2021-08-03] MEDS ORDERED: HYDR-2761 PO (17:36)
[2021-08-03] MEDS ORDERED: HYDROcodone/APAP 5/325MG 1 TAB TABLET PO ONE (17:45)
[2021-08-03] MEDS ORDERED: IBUPROFEN 200 MG TABLET. PO ONE (17:45)
[2021-08-03 17:48] VITALS: BP 128/72
[2021-08-04] MEDS ORDERED: METR-34 PO (09:13)
== END 2021-08-03 17:53 | disposition home or self-care (01) ==
LOC: ER 13:21 → EEVIPCON 13:21 → ER 17:53
DX: S32.009A Unspecified fracture of unspecified lumbar vertebra, initial encounter for closed fracture (principal); S01.01XA Laceration without foreign body of scalp, initial encounter; Z87.891 Personal history of nicotine dependence; Y08.89XA Assault by other specified means, initial encounter; Y93.89 Activity, other specified; Y92.89 Other specified places as the place of occurrence of the external cause; Y99.8 Other external cause status
CPT/HCPCS: 12004; 36415; 70450; 74177; 80053; 81001; 85025; 86850; 86900; 86901; 87491; 87591; 90471; 90715; 99285; J3490; Q9967